=== PATIENT | female | born 1970 | race Caucasian/White ===

== ENCOUNTER → 2016-07-27 | Outpatient (CLI) | payer OTHER ==
[~2016-07-27] MED LIST: ACTIFED PO; ASPI-390 PO; CALCTAB65 PO; MULT-240 PO; MULTTAB58 PO; PHEN-601 PO
== END | disposition home or self-care (01) ==
LOC: C.PAPS 14:13
PROVIDERS: ATTEND Obstetrics & Gynecology
DX: Z01.419 Encounter for gynecological examination (general) (routine) without abnormal findings (principal)

== ENCOUNTER 2016-08-19 16:17 | Emergency (ER) | payer OTHER ==
[~2016-08-19] VITALS: Ht 175.3 cm; Wt 60.7 kg
[~2016-08-19 16:17] MED LIST changes: -ASPI-390 PO; -CALCTAB65 PO; -MULT-240 PO; -PHEN-601 PO
[2016-08-19 16:22] VITALS: Ht 175.3 cm; Wt 60.7 kg
[2016-08-19] MEDS ORDERED: ASPI-390 PO (17:18)
[2016-08-19] MEDS ORDERED: MULT-240 PO (17:18)
[2016-08-19] MEDS ORDERED: PHEN-601 PO (17:18)
[2016-08-19] MEDS ORDERED: CALCTAB65 PO (17:18)
--- NOTE | 2016-08-19 17:26 | EMERGENCY ROOM VISIT NOTE ---
History First contact with patient: 16:36 Chief Complaint: SYNCOPE Stated Complaint: FAINTED AT WORK, HIT HEAD History of Present Illness The patient is a 46 year old female who presents to the Emergency Room with complaints of syncopal episode. The patient reports that this happened at [employer] where she is employed. 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 She noticed that her arms and hands were becoming red. As she was scratched them, she then became lightheaded and passed out. A coworker reported that she was only out for a second or two. When she regained consciousness, the patient reported that the itchiness and redness of her arms were gone. At the current time, she denies any symptoms or injuries, denying any headache, neck pain, back pain, chest pain, shortness of breath, nausea or other extremity injuries. The patient reports that she did have a prior history of syncope several years ago. 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 Review of Systems 10 system review was performed and was negative except for pertinent positives and negatives as indicated in history of present illness Past Medical/Surgical History Medical Problems: (1) Pineal gland cyst Surgical Problems: (1) No history of previous surgery Family History Unremarkable Social History Smoking Status: Never Smoker Alcohol Use: none Marital Status: single Housing Status: lives with family Occupation Status: employed Current/Historical Medications Scheduled Calcium Carbonate-Vitamin D (Calcium 500 + D), 1 TAB PO DAILY Multiple Vitamins W/ Minerals (Womens One Daily), 1 TAB PO DAILY Scheduled PRN Ybtdtbu-Ozegkfsbfnujo-Rswyyaxi (Excedrin Migraine), 1 TAB PO UD PRN for Migraine Phenylephrine W/ Acetaminophen (Tylenol Sinus Congestion), 1 TAB PO UD PRN for Sinus Congestion Allergies Uncoded Allergies: SEASONAL ALLERGIES (Allergy, Unknown, unknown, 07/22/15) Physical Exam Vital Signs Date Time Temp Pulse Resp B/P Pulse Ox O2 Delivery O2 Flow Rate FiO2 08/19/16 16:47 84 20 127/70 100 Room Air 81 117/77 95 135/76 08/19/16 16:22 37.0 92 18 135/87 99 Room Air Physical Exam CONSTITUTIONAL: Healthy and well nourished. Alert and oriented X 3 with positive affect. GCS 15. Patient does not appear in any acute distress. HEENT: Normocephalic, atraumatic. Pupils equal, round and reactive. No head abrasions, ecchymosis, erythema, hematomas or lacerations. No hyphema, subconjunctival hemorrhage, epistaxis, raccoon's eyes or Jaramillo sign. NECK: Full active range of motion without discomfort. RESPIRATORY: Clear to auscultation bilaterally with no wheezing, crackles, rhonchi or stridor. CARDIOVASCULAR: Regular rate and rhythm with no murmurs, rubs or gallops. GASTROINTESTINAL: Bowel sounds present in all quadrants. Soft and nontender to palpation. MUSCULOSKELETAL: Full range of motion of all joints without discomfort. No tenderness to palpation through the central thoracolumbar spine. INTEGUMENTARY: No rash or other significant dermatologic conditions noted. There are no rashes, excoriations or other tubbs on the upper extremities. NEUROLOGIC: Cranial nerves II-XII grossly intact. No focal neurologic deficits noted. Normal finger to nose test. Negative pronator drift. No ataxia with ambulation. Medical Decision & Procedures ED Course Patient history and physical exam were performed. Nurse's notes were reviewed. Triage vital signs were normal. Orthostatic vital signs were also performed and were normal. The patient reports that she feels perfectly normal at this point, and refuses any additional workup. I did suggest that we at least perform an EKG, and the patient was okay with that. ECG showed a normal sinus rhythm of [address] elevations or other conduction abnormalities were noted. At this point, the patient was instructed to rest and remain well-hydrated. The patient thinks that she is allergic to something from the construction site at the front of the store. I encouraged her to discuss this with her employer. She may take Claritin or Benadryl as needed for any additional redeveloping itch. Return to the emergency department for any recurrent syncope or other concerning symptoms. The patient was happy with plan of care, and denied any symptoms at the time of discharge. Medical Decision Exact etiology for the patient's syncope is unknown. Because she did develop an allergic type reaction, I suspect that this was a vasovagal type of syncope. The patient is currently asymptomatic. She refused any further workup at this time. I do feel that the patient is stable for outpatient management, returning for any redeveloping symptoms. Impression Primary Impression: Syncope Departure Information Dispostion Home / Self-Care Forms HOME CARE DOCUMENTATION FORM, IMPORTANT VISIT INFORMATION Patient Instructions My [employer] Additional Instructions Rest and remain well-hydrated. Try to avoid the front of the store in case you are having a reaction to the construction dust/smells. Follow-up with your Worker's Compensation physician for recheck within 24-48 hrs. Return to the ER for any recurrent symptoms. Problem Qualifiers Primary Impression: Syncope Syncope type: unspecified Qualified Codes: R55 - Syncope and collapse
[2016-08-19 17:52] VITALS: BP 130/68; PULSE 82; TEMP 37; O2SAT 99
== END 2016-08-19 17:54 | disposition home or self-care (01) ==
LOC: C.EDB 16:19
DX: R55 Syncope and collapse (principal); L29.9 Pruritus, unspecified; E34.8 Other specified endocrine disorders; Y99.0 Civilian activity done for income or pay

== ENCOUNTER 2017-04-03 14:45 | Emergency (ER) | payer OTHER ==
[~2017-04-03] VITALS: Ht 175.3 cm; Wt 59.0 kg
[2017-04-03 14:53] VITALS: BP 136/84; TEMP 37; Ht 175.3 cm; Wt 59.0 kg
--- NOTE | 2017-04-03 15:26 | EMERGENCY ROOM VISIT NOTE ---
ED Visit Note First contact with patient: 15:03 CHIEF COMPLAINT: Foot pain HISTORY OF PRESENT ILLNESS: This 47-year-old female patient presents to the emergency department complaining of pain in the left foot for the last 2 weeks. The patient had a fall 2 weeks ago twisting her foot in an everted manner. She is still able to bear weight with pain. She denies any pain into the ankle. No numbness or tingling. No previous injury to the foot. She has taken Tylenol with moderate pain relief. REVIEW OF SYSTEMS: GENERAL: A 6 system review of systems was completed with positives and pertinent negatives in the HPI. ALLERGIES: No known drug allergies MEDICATIONS: Reviewed PMH: Otherwise healthy SOCIAL HISTORY: Denies tobacco and EtOH use. The patient is employed at [employer] PHYSICAL EXAM: Vital Signs: Reviewed Nurse's notes, vital signs stable. GENERAL : 47-year-old female, in no acute distress, but appears in pain, well-developed , well-nourished. MUSCULOSKELATAL: There is no visual deformity of the left foot. There is no erythema or ecchymosis. There is no warmth. There is tenderness and swelling over the medial aspect of the hind left foot. There is no tenderness over the lateral or medial malleolus. No tenderness of the tib/ fib. Full dorsal and plantar flexion. There is no tenderness over the plantar fascia. The skin is intact and there are no lacerations or puncture wounds. Dorsalis pedis pulse 2+. Capillary refill less than 2 seconds. EMERGENCY DEPARTMENT COURSE: I examined the patient. An X-ray of the left foot was reviewed Left foot x-ray IMPRESSION: No acute osseous injury or significant abnormality of the left foot. Electronically signed by: Juanito Danielson M.D. 04/03/2017 3:55 PM Dictated Date/Time: 04/03/2017 3:54 PM The status of this report is Signed. Draft = Not yet reviewed or approved by Radiologist. Signed = Reviewed and approved by Radiologist. <AttendingPhy></AttendingPhy> <FamilyPhy>Elizabeth Gaston M.D.</FamilyPhy> < PrimaryPhy>Elizabeth Gaston M.D.</PrimaryPhy> <UnitNumber>[id number]</ UnitNumber> <VisitNumber>[id number]</VisitNumber> <PatientName>SYEDA COWAN</PatientName> <DateOfBirth>1970</DateOfBirth> <Location>[facility]</ Location> <ServiceDate>04/03/17</ServiceDate> <MNE>ESINDI</MNE> <OrderingPhy> Ibeth Davila PA-C</OrderingPhy> The patient was placed in postop shoe and instructed on the use of crutches. The patient was discharged home in good condition. DIAGNOSIS: Foot pain TREATMENT: Please elevate the foot as much as possible over the next 3 days. Use crutches. Minimal weightbearing while the foot is still painful. Ibuprofen 400 mg and/or Tylenol 1000 mg every 8 hours. You may also alternate these medications for more effective pain relief: Ibuprofen --4 HRS--> Tylenol --4 HRS--> ibuprofen --4 HRS--> Tylenol .... Please apply Voltaren gel every 6 hours as needed for pain. If there is no improvement, please follow-up with your doctor or an orthopedic surgeon. A number has been provided for Dr. Piedra with [facility]. Do not hesitate to return to the emergency department with any new, worsening or concerning symptoms.
--- NOTE | 2017-04-03 15:56 | DIAGNOSTIC IMAGING REPORT ---
L FOOT MIN 3 VIEWS ROUTINE CLINICAL HISTORY: 47 years-old Female presenting with L hind foot pain. TECHNIQUE: Frontal, oblique, and lateral views of the left foot were obtained. COMPARISON: None. FINDINGS: No abnormality of the hindfoot. No acute fracture or malalignment. No radiographic evidence of focal soft tissue swelling. No degenerative change. IMPRESSION: No acute osseous injury or significant abnormality of the left foot. Electronically signed by: Juanito Danielson M.D. 04/03/2017 3:55 PM Dictated Date/Time: 04/03/2017 3:54 PM
[2017-04-03] MEDS ORDERED: DICL1GEL12 TD (16:06)
[2017-04-03 16:22] VITALS: PULSE 86; O2SAT 97
[2017-04-03] MEDS ORDERED: CALCTAB65 PO (17:18)
[2017-04-03] MEDS ORDERED: MULT-240 PO (17:18)
[2017-04-03] MEDS ORDERED: ASPI-390 PO (17:18)
[2017-04-03] MEDS ORDERED: PHEN-601 PO (17:18)
== END 2017-04-03 16:23 | disposition home or self-care (01) ==
LOC: C.EDB 14:46 → C.EDD 16:23
DX: M79.672 Pain in left foot (principal); X50.9XXA Other and unspecified overexertion or strenuous movements or postures, initial encounter

== ENCOUNTER → 2017-07-29 | Outpatient (CLI) | payer OTHER ==
[~2017-07-29] MED LIST changes: -ACTIFED PO; +ASPI-390 PO; +CALCTAB65 PO; +DICL1GEL12 TD; +MULT-240 PO; -MULTTAB58 PO; +PHEN-601 PO
== END | disposition home or self-care (01) ==
LOC: C.PAPS 16:33
PROVIDERS: ATTEND Obstetrics & Gynecology
DX: Z12.4 Encounter for screening for malignant neoplasm of cervix (principal)